=== PATIENT | male | born 1965 | race Caucasian/White ===

== ENCOUNTER 2023-04-08 14:43 | Outpatient (AMB) | payer OTHER, SELFPAY ==
--- NOTE | 2023-04-08 15:32 | A.OFFPC_ITS ---
<Statement entered by Gabbie Evans MD - 01/17/25 15:19> This note has been administratively?closed. 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 Allergies No Known Allergies Allergy (Verified 04/08/23 15:45) Medication List - Last Reconciled 04/08/23 by Gabbie Evans MD amlodipine 10 mg PO DAILY cetirizine 10 mg PO DAILY citalopram 20 mg PO DAILY rosuvastatin 5 mg PO DAILY Tobacco use date assessed: 04/08/23 Dental Screening Dental Screen Date: 04/08/23 Did you have a dental visit in the last 12 months?: Yes Did you have a dental problem in the last 6 months where you did not have access to dental care?: No Was dental information given to patient?: No HPI 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 [facility] Medical History (Updated 04/08/23 @ 15:51 by Gabbie Evans MD) Essential hypertension Generalized anxiety disorder Hyperlipidemia Obesity Seasonal allergies Surgical History (Updated 04/08/23 @ 16:08 by Gabbie Evans MD) S/P inguinal herniorrhaphy Family History (Updated 04/08/23 @ 16:09 by Gabbei Evans MD) Mother Hyperlipidemia Maternal Uncle Parkinsons disease Social History (Updated 04/08/23 @ 16:10 by Gabbie Evans MD) Housing: House Patient Tobacco Use Status: Never used Tobacco e-Cigarette/Vaping Use: Never Used service: No Current occupational status: employed Cognitive needs: No Hearing needs: No Vision needs: Yes Questionnaire PHQ-9 Over the last 2 weeks, how often have you been bothered by any of the following problems? 1. Little interest or pleasure in doing things: not at all 2. Feeling down, depressed, or hopeless: not at all 3. Trouble falling or staying asleep, or sleeping too much: not at all 4. Feeling tired or having little energy: not at all 5. Poor appetite or overeating: not at all 6. Feeling bad about yourself - or that you are a failure or have let yourself or your family down: not at all 7. Trouble concentrating on things, such as reading the newspaper or watching television: not at all 8. Moving or speaking so slowly that other people could have noticed. Or the opposite - being so fidgety or restless that you have been moving around a lot more than usual: not at all 9. Thoughts that you would be better off or of hurting yourself in some way: not at all Total score: 0 Depression Screening Interpretation: Negative 58115 - PHQ-9 Billing: Yes Source: Developed by Drs. Charlie Fuentes, Eliza Monroy, Asad Ma and colleagues, with an educational felecia from [employer]. Thrive Questionnaire Date Thrive assessed: 04/08/23 I am a: Patient What is your living situation today?: I have a steady place to live Within the past 12 months, did the food you bought not last and you didn't have the money to get more?: Never true Within the past 12 months, did you worry whether your food would run out before you got money to buy more?: Never true Do you have trouble paying for medicines?: No Do you have trouble getting transportation to medical appointments?: No Do you have trouble paying your heating and electricity bill?: No Do you have trouble taking care of your child, family member or friend?: No Do you have trouble with day-to-day activities such as bathing, preparing meals, shopping, managing finances, etc.?: No Are you currently unemployed and looking for a job?: No Are you interested in more education?: No AUDIT C Alcohol Use Questionnaire (AUDIT-C) 1. How often do you have a drink containing alcohol?: 2-4 times a month 2. How many drinks containing alcohol do you have on a typical day when you are drinking?: 1 or 2 3. How often do you have six or more drinks on one occasion?: Never Total Score: 2 Score Reviewed/Action Taken: Yes KAUR-7 AMB Questionnaire KAUR-7 Date KAUR - 7 assessed: 04/08/23 Feeling nervous, anxious, or on edge: 0 = Not at all Not being able to stop or control worryin = Not at all Worrying too much about different things: 0 = Not at all Trouble relaxin = Several days Being so restless that it is hard to sit still: 0 = Not at all Becoming easily annoyed or irritable: 0 = Not at all Feeling afraid as if something awful might happen: 0 = Not at all Total KAUR-7 score (0-4 normal; 5-9 mild; 10-14 moderate; 15-21 severe): 1 Source: Developed by Drs. Charlie Fuentes, Eliza Monroy, Asad Ma and colleagues, with an educational felecia from [employer]. KAUR-7 Assessment Billing KAUR-7 Assessment Tool: KAUR-7 Assessment 20369 Physical exam (Primary Care) Vital Signs: Last Vital Signs Pulse 63 04/08/23 15:37 BP 126/78 04/08/23 15:37 Pulse Ox 95 04/08/23 15:37 Oxygen Delivery Method Room Air 04/08/23 15:37 BMI result Body Mass Index 34.1 Tobacco/Smoking Status: Tobacco use Status Tobacco use date assessed 04/08/23 04/08/23 15:41 Patient Tobacco Use Status Current someday Tobacco 04/08/23 15:41 e-Cigarette/Vaping Use Never Used 04/08/23 15:41 PHQ-9: PHQ-9 Score PHQ-9: Total score 0 04/08/23 15:47 Depression Screening Interpretation: Negative Thrive Assessment: Date of Thrive Assessment Date Thrive assessed 04/08/23 04/08/23 15:42 Cardio Peripheral pulses: popliteal pulses present, posterior tibial pulses present and dorsalis pedis present GI Other: Reducible nontender umbilical hernia Palpation (GI): Soft to palpation, nontender, no guarding and Hernia present umbilical Auscultation: normal bowel sounds Male General Exam: Yes normal external exam Extrem Other: Tenderness on palpation along lateral aspect of left lower leg just below knee, with no gross bone deformity or joint swelling seen in affected extremity, no varicosities seen Assessment and Plan Assessment & Plan (1) Obesity: Code(s): E66.9 - Obesity, unspecified (2) Seasonal allergies: Code(s): J30.2 - Other seasonal allergic rhinitis (3) Generalized anxiety disorder: Code(s): F41.1 - Generalized anxiety disorder (4) Hyperlipidemia: Code(s): E78.5 - Hyperlipidemia, unspecified (5) Essential hypertension: Code(s): I10 - Essential (primary) hypertension (6) Annual visit for general adult medical examination with abnormal findings: Code(s): Z00.01 - Encounter for general adult medical examination with abnormal findings (7) Leg pain, lateral: Code(s): M79.606 - Pain in leg, unspecified Orders: Orders Alanine Aminotransferase Today E66.9 - Obesity, unspecified, E78.5 - Hyperlipidemia, unspecified, F41.1 - Generalized anxiety disorder, I10 - Essential (primary) hypertension, J30.2 - Other seasonal allergic rhinitis, Z00. - Encounter for general adult medical examination with abnormal findings Aspartate Amino Transferase Today E66.9 - Obesity, unspecified, E78.5 - Hyperlipidemia, unspecified, F41.1 - Generalized anxiety disorder, I10 - Essential (primary) hypertension, J30.2 - Other seasonal allergic rhinitis, Z00.01 - Encounter for general adult medical examination with abnormal findings Basic Metabolic Panel Fasting Today E66.9 - Obesity, unspecified, E78.5 - Hyperlipidemia, unspecified, F41.1 - Generalized anxiety disorder, I10 - Essential (primary) hypertension, J30.2 - Other seasonal allergic rhinitis, Z00.01 - Encounter for general adult medical examination with abnormal findings Lipid Panel Today E66.9 - Obesity, unspecified, E78.5 - Hyperlipidemia, unspecified, F41.1 - Generalized anxiety disorder, I10 - Essential (primary) hypertension, J30.2 - Other seasonal allergic rhinitis, Z00.01 - Encounter for general adult medical examination with abnormal findings Vitamin D 25-OH Total Today E66.9 - Obesity, unspecified, E78.5 - Hyperlipi demia, unspecified, F41.1 - Generalized anxiety disorder, I10 - Essential (primary) hypertension, J30.2 - Other seasonal allergic rhinitis, Z00.01 - Encounter for general adult medical examination with abnormal findings PSA,Total (Free>4and<10) Today E66.9 - Obesity, unspecified, E78.5 - Hyperlipidemia, unspecified, F41.1 - Generalized anxiety disorder, I10 - Essential (primary) hypertension, J30.2 - Other seasonal allergic rhinitis, Z00.01 - Encounter for general adult medical examination with abnormal findings US venous duplex LE LT Today M79.606 - Pain in leg, unspecified Medications: New amlodipine 10 mg PO DAILY 90 tabs 1RF cetirizine 10 mg PO DAILY PRN 90 tabs 1RF allergy symptoms citalopram 20 mg PO DAILY 90 tabs 1RF rosuvastatin 5 mg PO DAILY 90 tabs 1RF Coding Level of Care Code New Pt Prev Care 40-64y(48705) Diagnoses Obesity E66.9 Seasonal allergies J30.2 Generalized anxiety disorder F41.1 Hyperlipidemia E78.5 Essential hypertension I10 Annual visit for general adult medical examination with abnormal findings Z00.01 Leg pain, lateral M79.606 Additional Codes KAUR-7 Assessment Billing - KAUR-7 Assessment Tool: KAUR-7 Assessment 55618 ([id number])
[2023-04-08 15:37] VITALS: BP 126/78; PULSE 63; O2SAT 95; BMI 34.1
== END 2023-04-08 16:18 | disposition home or self-care (01) ==
PROVIDERS: Visit Provider Internal Medicine
DX: E66.9 Obesity, unspecified (principal); J30.2 Other seasonal allergic rhinitis; F41.1 Generalized anxiety disorder; E78.5 Hyperlipidemia, unspecified; I10 Essential (primary) hypertension; Z00.01 Encounter for general adult medical examination with abnormal findings; M79.606 Pain in leg, unspecified
CPT/HCPCS: 99499

== ENCOUNTER 2023-04-14 15:29 | Outpatient (REF) | payer OTHER, SELFPAY ==
--- NOTE | ~2023-04-14 | US_ITS ---
EXAMINATION: US VENOUS ULTRASOUND WITH DOPPLER LOWER EXTREMITY, LEFT CLINICAL INFORMATION: Leg pain. COMPARISON: None available. TECHNIQUE: Ultrasound of the deep veins is performed from the hip to the calf with compression sonography and color and pulse Doppler assessment. Spectral analysis with color-flow imaging is performed. FINDINGS: There is normal venous compression and respiratory variation and augmented flow. The visualized common femoral vein, superficial femoral vein, profunda femoral vein, popliteal vein, and the trifurcation region shows no evidence of deep venous thrombosis. There is no significant popliteal fossa cyst. Incidental finding of hypo-/anechoic focal area left lateral proximal gastroc muscle without vascularity. Appears solid. Question muscle or nerve tumor. If the patient's symptoms persist, followup ultrasound in 5 days 7 days might be of value to exclude proximal propagation from a non-visualized calf vein. US/US venous duplex LE LT IMPRESSION: No DVT demonstrated in the left lower extremity. Solid lesion left proximal gastroc muscle. Question schwannoma, hibernoma or nodular fasciitis. Recommend MRI without and with contrast of the calf. The airway is patent without
== END 2023-04-14 15:30 | disposition home or self-care (01) ==
LOC: HO.US 15:29
PROVIDERS: PCP Internal Medicine; Visit Provider Internal Medicine
DX: M79.605 Pain in left leg (principal)
CPT/HCPCS: 93971

== ENCOUNTER 2023-04-19 07:58 | Outpatient (REF) | payer OTHER, SELFPAY ==
[2023-04-19 12:28] LABS: PSA,Total (Free>4and<10) 1.54 ng/mL (0.00-4.00)
[2023-04-19 12:45] LABS: Alanine Aminotransferase 29 U/L (0-40); Anion Gap 14 (12-20); Aspartate Amino Transferase 23 U/L (5-37); Blood Urea Nitrogen 17 mg/dL (9-16); Calcium 9.5 mg/dL (8.4-10.2); Carbon Dioxide 24 mmol/L (22-29); Chloride 108 mmol/L (96-108); Cholesterol 142 mg/dL; Estimated Glomerular Filt Rate > 60; Glucose Fasting 111 mg/dL (60-99); HDL Cholesterol 45 mg/dL; LDL Cholesterol Calculated 82 mg/dl; Potassium 3.7 mmol/L (3.3-5.1); Sodium 142 mmol/L (135-145); Triglycerides 77 mg/dL; Vitamin D 25-OH Total 47.7 ng/mL (>30)
== END 2023-04-19 07:59 | disposition home or self-care (01) ==
LOC: HO.HMGCLDS 07:58
PROVIDERS: PCP Internal Medicine; Visit Provider Internal Medicine
DX: Z00.01 Encounter for general adult medical examination with abnormal findings (principal); J30.2 Other seasonal allergic rhinitis; E66.9 Obesity, unspecified; E78.5 Hyperlipidemia, unspecified; F41.1 Generalized anxiety disorder; I10 Essential (primary) hypertension; Z12.5 Encounter for screening for malignant neoplasm of prostate
CPT/HCPCS: 36415; 80048; 80061; 82306; 84153; 84450; 84460

== ENCOUNTER 2023-06-08 12:50 | Outpatient (REF) | payer OTHER, SELFPAY ==
--- NOTE | ~2023-06-08 | MR_ITS ---
EXAMINATION: MR LOWER LEG WITHOUT AND WITH CONTRAST, LEFT CLINICAL INFORMATION: Solid lesion left proximal gastrocnemius muscle on venous Doppler. Question schwannoma, hibernoma, nodular fasciitis. COMPARISON: Lower extremity venous ultrasound dated 04/14/2023. TECHNIQUE: Multisequence MR imaging of the left lower leg was obtained before and after the IV administration of 10 mL Gadavist contrast on a high-field strength scanner. FINDINGS: BONE: No abnormal marrow signal. No stress reaction, fracture, or avascular necrosis. No concerning lytic or blastic osseous lesion. No postcontrast marrow enhancement. MUSCLES/TENDONS: The visualized muscles and tendons are intact. No edema or evidence of acute injury. No measurable tear. No postcontrast enhancement. LIGAMENTS: Intra-articular knee ligaments grossly intact on large voglx-vy-nyyi imaging. SOFT TISSUES: Along the lateral aspect of the proximal fibular metaphysis, there is an ovoid focus of isointense T1 and hyperintense T2 signal measuring approximately 0.9 x 1.1 x 0.9 cm. This demonstrates mild postcontrast enhancement and corresponds to the prior ultrasound findings. 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 Differential diagnosis includes a traumatic neuroma given the location adjacent to a bony prominence. No additional soft tissue mass or fluid collection. MR/MR lower leg LT wo/w con IMPRESSION: 1. Ovoid focus measuring up to 1.1 cm along the lateral aspect of the proximal fibular metaphysis which demonstrates mild postcontrast enhancement and corresponds to the prior ultrasound findings. 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 Differential diagnosis includes a traumatic neuroma given the location adjacent to a bony prominence. 2. No additional soft tissue mass or fluid collection. 3. No acute osseous abnormality. No stress reaction, fracture, or avascular necrosis.
[2023-06-08] MEDS: gadobutroL 10 ML VIAL IVPUSH (13:54)
== END 2023-06-08 12:51 | disposition home or self-care (01) ==
LOC: HO.MRI 12:50
PROVIDERS: PCP Internal Medicine; Visit Provider Internal Medicine
DX: M79.9 Soft tissue disorder, unspecified (principal)
CPT/HCPCS: 73720; A9585

== ENCOUNTER 2023-07-02 12:36 | Outpatient (AMB) | payer OTHER, SELFPAY ==
[2023-07-02 12:58] VITALS: BP 142/84; PULSE 70; BMI 33.8
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
--- NOTE | 2023-07-05 09:11 | A.OFFVIS_ITS ---
Intake Vital Signs 07/02/23 12:58 Height 5 ft 8 in Weight 222 lb BMI 33.8 BP 142/84 H Blood Pressure Location Rt brachial Position Sitting Pulse 70 Intake Visit Reasons: peripheral nerve sheath tumor Allergies penicillin G Allergy (Mild, Verified 07/02/23 13:03) Hives Medication List - Last Reconciled 07/02/23 by Ad Brito MD amlodipine 10 mg PO DAILY cetirizine 10 mg PO DAILY PRN citalopram 20 mg PO DAILY rosuvastatin 5 mg PO DAILY HPI HPI Comments History of Present Illness Details Patient presents 1. Left leg mass 2. Umbilical hernia 1. Patient has had this process indeterm inate time. He has had occasional symptoms when he strikes the left upper lateral calf area and had pain. 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 2. Umbilical hernia is been present for many years time. His increasing size, becoming more symptomatic. Patient wished to have this repaired. He is tolerating a diet having normal bowel habits. Does occasional heavy lifting. He has no other GI issues or complaints. Chart was reviewed patient evaluated [facility] Medical History Mass of left lower leg Lesion of soft tissue of lower leg and ankle Obesity Seasonal allergies Generalized anxiety disorder Hyperlipidemia Essential hypertension Surgical History S/P inguinal herniorrhaphy Family History Mother Hyperlipidemia Maternal Uncle Parkinsons disease Social History (Updated 07/02/23 @ 13:04 by TEO Ryder) Housing: House Alcohol intake: current Alcohol intake frequency: holidays/special occasions only Patient Tobacco Use Status: Never used Tobacco e-Cigarette/Vaping Use: Never Used service: No Current occupational status: employed Cognitive needs: No Hearing needs: No Vision needs: Yes Physical Exam Vital Signs: Last Vital Signs Pulse 70 07/02/23 12:58 BP 142/84 H 07/02/23 12:58 BMI result Body Mass Index 33.8 Chest Other: Chest sounds bilaterally, HS 1 in 2 GI Other: Patient was examined both supine and standing with Valsalva. Moderate corpulent abdomen. Very large approximately 3 cm umbilical hernia reducible. Bilateral groin exam negative. Genitalia within normal limits. Abdomen otherwise benign. Extrem Other: Extremities grossly neurovascularly intact. Patient has some tenderness over the proximal lateral left upper calf. No obvious mass was palpable. No groin adenopathy. Assessment & Plan Assessment & Plan (1) Mass of left lower leg: Code(s): R22.42 - Localized swelling, mass and lump, left lower limb Plan: 1. Risks, benefits, alternatives umbilical hernia repair open technique with mesh were reviewed with the patient and included but not limited to bleeding, infection, recurrence, numbness, pain, scarring, bowel injury and the patient wishes to proceed. All questions were answered. 2. The left proximal lateral thigh mass therapeutic options reviewed the patient including excision, or continued surveillance. Patient has opted for the latter. It is minimally symptomatic and at present, does not want to pursue any surgical interventions regarding this. Current plan is to arrange for an MRI in 6 months time for surveillance. Should in the meantime he developed any symptoms regarding this he should contact the office. (2) Umbilical hernia, incarcerated: Code(s): K42.0 - Umbilical hernia with obstruction, without gangrene Orders: Orders MR lower leg LT wo/w con 6 Months R22.42 - Localized swelling, mass and lump, left lower limb Quality Reporting (2019) Adult ([facility] ) Body Mass Index: 33.8 Coding Level of Care Code New Pt Level 5 (88399) Diagnoses Mass of left lower leg R22.42 Umbilical hernia, incarcerated K42.0
[2023-07-05 09:15] VITALS: BMI 33.8
== END 2023-07-02 13:16 | disposition home or self-care (01) ==
PROVIDERS: PCP Internal Medicine; Visit Provider Surgery
DX: R22.42 Localized swelling, mass and lump, left lower limb (principal); K42.0 Umbilical hernia with obstruction, without gangrene
CPT/HCPCS: 99204

== ENCOUNTER → 2023-07-02 12:36 | Outpatient (BNVA) | payer OTHER, SELFPAY | PROVIDERS: PCP Internal Medicine; Visit Provider Surgery ==

== ENCOUNTER 2023-07-09 06:54 | Day surgery (SDC) | payer OTHER, SELFPAY ==
--- NOTE | 2023-07-08 10:28 | MHC.SHP ---
Pre-Procedural Eval Section A Date of Service: 07/08/23 The patient is an INPATIENT: No Changes since office visit: No Cold of Flu in the past 2 weeks, No New Medical Problems, No Changes in Medication and No Patient answered all questions The History & Physical has been completed within 30 days and I have reviewed it.: Yes Section B Chief Complaint: Umbilical hernia with obstruction, without gangren Allergies: Allergies Allergy/AdvReac Type Severity Reaction Status Date / Time penicillin G Allergy Mild Hives Verified 07/02/23 13:03 Plan I have reviewed the history and physical and performed a pertinent physical examination on my patient. No changes have occurred unless specified. Time Spent With Patient Time: Total time managing care of this patient today ____ minutes.
--- NOTE | 2023-07-08 10:48 | HO.ANESPROP2 ---
Documented by User: Magali Mandujano NP 07/08/23 10:49 HPI - Anesthesia Eval Consult details Narrative: 57yo M for Open Hernia Repair Umbilical w/mesh PMFSH Active Problems Active Problems: All Active Problems (Updated 04/14/23 @ 23:54 by Gabbie Evans MD) Umbilical hernia, incarcerated (Acute) Mass of left lower leg (Acute) Lesion of soft tissue of lower leg and ankle (Acute) Obesity (Acute) Seasonal allergies (Acute) Generalized anxiety disorder (Acute) Hyperlipidemia (Acute) Essential hypertension (Acute) Past Medical History Medical History Mass of left lower leg Lesion of soft tissue of lower leg and ankle Obesity Seasonal allergies Generalized anxiety disorder Hyperlipidemia Essential hypertension Family History Family History Mother Hyperlipidemia Maternal Uncle Parkinsons disease Surgical History Surgical History S/P inguinal herniorrhaphy Social History Social History (Updated 07/02/23 @ 13:04 by TEO Ryder) Housing: House Alcohol intake: current Alcohol intake frequency: holidays/special occasions only Patient Tobacco Use Status: Never used Tobacco e-Cigarette/Vaping Use: Never Used Use of substances other than those prescribed or required for medical reasons: No Are you DNR?: No Advance Directives: No Advance Directives Information Provided: Yes service: No Current occupational status: employed Cognitive needs: No Hearing needs: No Vision needs: Yes Meds Allergies Allergy/AdvReac Type Severity Reaction Status Date / Time penicillin G Allergy Mild Hives Verified 07/02/23 13:03 Active Medications: Current Medications Clindamycin Phosphate (Cleocin) 900 mg in 50 mls @ 50 mls/hr IV PREOP ONE Stop: 07/08/23 11:26 Exam Exam Date and Time: July 08, 2023 1048 Pertinent Lab Results Pertinent Lab Results: Laboratory Tests 04/19/23 08:02 Sodium 142 Potassium 3.7 Chloride 108 Carbon Dioxide 24 BUN 17 H Creatinine 0.80 Assessment and Plan Assessment Anesthesia Assessment: Chart Reviewed Documented by User: Ronaldo Betancourt MD 07/09/23 07:58 PMF Past Medical History Medical History Mass of left lower leg Lesion of soft tissue of lower leg and ankle Obesity Seasonal allergies Generalized anxiety disorder Hyperlipidemia Essential hypertension Family History Family History Mother Hyperlipidemia Maternal Uncle Parkinsons disease Family history of problems with anesthesia: No Surgical History Surgical History S/P inguinal herniorrhaphy History of Problems with Anesthesia: No Social History Social History (Updated 07/02/23 @ 13:04 by TEO Ryder) Housing: House Alcohol intake: current Alcohol intake frequency: holidays/special occasions only Patient Tobacco Use Status: Never used Tobacco e-Cigarette/Vaping Use: Never Used Use of substances other than those prescribed or required for medical reasons: No Are you DNR?: No Advance Directives: No Advance Directives Information Provided: Yes service: No Current occupational status: employed Cognitive needs: No Hearing needs: No Vision needs: Yes Meds Allergies Allergy/AdvReac Type Severity Reaction Status Date / Time penicillin G Allergy Mild Hives Verified 07/02/23 13:03 Exam Airway Mallampati Class: II TM Dist: >3cm Neck ROM: Limited Heart: rrr Lungs: cta Assessment and Plan Assessment Anesthesia Assessment: Anesthesia Plan Discussed Final Anesthetic Review Family History of Problems with Anesthesia: No History of Problems with Anesthesia: No NPO: Yes ASA Class: II Final Preanesthetic Review: No Changes in Pt Med Stat, Meds/Allgs Chart Reviewed, Consent Obtained/Reviewed and Anes Risks/Benef Reviewed Patient Risk: Intermediate Procedure Risk: Intermediate Anesthetic Plan Anesthetic Plan: GA, MAC: and Agree w/ Assess. and Plan Disposition: Standard PACU
[2023-07-09 07:05] VITALS: BMI 33.4
[2023-07-09 07:12] VITALS: BP 139/89; PULSE 72; RESP 16; TEMP 37.2; O2SAT 94
[2023-07-09] MEDS: Lactated Ringers 1,000 ML 100 ML IVCONT (07:43)
--- NOTE | 2023-07-09 09:04 | P.OP_ITS ---
Operative Note Operative Note Date of Service: 07/09/23 Narrative: Preoperative diagnosis: [] Large incarcerated umbilical hernia Postop diagnosis: [] Same Procedure [] open umbilical herniorrhaphy with Bard mesh Surgeon: [] Daryl Trimming Machine Operator: [] Rosalio Type of Anesthesia: [] Large umbilical hernia with incarcerated omental contents. Defect measured approximately 4 cm. Wound was irrigated Indication for surgery: [] General Findings: [] Patient brought to the operating room, placed on operative table in supine position, after adequate level of general anesthesia was induced, the patient's abdomen was prepped and draped in usual sterile fashion. Patient underwent preemptive analgesia with 0.5% Marcaine/1% lidocaine. A supraumbilical curvilinear incision was made around the hernia in question, and carried down through skin, subcutaneous tissue, where a large hernia sac was from the posterior aspect of the umbilicus and dissected down to the fascia. Sac was opened where incarcerated omental contents and sac were amputated using Bovie. Fascia margins were circumferentially cleared. A Bard mesh was placed in this defect, and the superficial layer of the mesh was circumferentially sutured to the surrounding fascia using interrupted 0 Ethibond suture. At completion procedure, mesh was in good position w no tension or gaps. Wound was irrigated, secured hemostasis, and closed using interrupted 3-0 Vicryl sutures to tack the posterior aspect of the umbilicus to the wound floor. Skin was closed using interrupted inverted dermal 3-0 Vicryl sutures followed by Steri-Strips and sterile dressings. Sponge, needle, instrument counts reported correct. Patient tolerated procedure well and emerged anesthesia stable condition. EBL minimal
[2023-07-09 09:15] VITALS: BP 113/78; PULSE 85; RESP 16; TEMP 36.3; O2SAT 98
[2023-07-09 09:20] VITALS: BP 116/65; PULSE 82; RESP 16; O2SAT 97
[2023-07-09 09:25] VITALS: BP 115/68; PULSE 75; RESP 16; O2SAT 97
[2023-07-09 09:30] VITALS: BP 109/68; PULSE 82; RESP 16; O2SAT 97
[2023-07-09 09:45] VITALS: BP 116/78; PULSE 77; RESP 16; TEMP 36.5; O2SAT 97
--- NOTE | 2023-07-09 09:58 | P.CONAN_ITS ---
HPI - Anesthesia Eval Consult details Narrative: Colonoscopy PMFSH Active Problems Active Problems: All Active Problems (Updated 04/14/23 @ 23:54 by Gabbie Evans MD) Umbilical hernia, incarcerated (Acute) Mass of left lower leg (Acute) Lesion of soft tissue of lower leg and ankle (Acute) Obesity (Acute) Seasonal allergies (Acute) Generalized anxiety disorder (Acute) Hyperlipidemia (Acute) Essential hypertension (Acute) Past Medical History Medical History Mass of left lower leg Lesion of soft tissue of lower leg and ankle Obesity Seasonal allergies Generalized anxiety disorder Hyperlipidemia Essential hypertension Family History Family History Mother Hyperlipidemia Maternal Uncle Parkinsons disease Family history of problems with anesthesia: No Surgical History Surgical History S/P inguinal herniorrhaphy History of Problems with Anesthesia: No Social History Social History (Updated 07/02/23 @ 13:04 by TEO Ryder) Housing: House Alcohol intake: current Alcohol intake frequency: holidays/special occasions only Patient Tobacco Use Status: Never used Tobacco e-Cigarette/Vaping Use: Never Used Use of substances other than those prescribed or required for medical reasons: No Are you DNR?: No Advance Directives: No Advance Directives Information Provided: Yes service: No Current occupational status: employed Cognitive needs: No Hearing needs: No Vision needs: Yes Meds Allergies Allergy/AdvReac Type Severity Reaction Status Date / Time penicillin G Allergy Mild Hives Verified 07/02/23 13:03 Active Medications: Current Medications Acetaminophen (Acetaminophen 325 Mg Tablet) 650 mg PO Q4H PRN PRN Reason: mild to moderate pain Fentanyl (Fentanyl Citrate/Pf 100 Mcg/2 Ml Vial) 25 mcg IVPUSH Q5M PRN; Protocol PRN Reason: Pain, Moderate(Pain Scale 4-6) Hydromorphone HCl (Hydromorphone Hcl 0.5 Mg/0.5 Ml Syringe) 0.25 mg IVPUSH Q5M PRN; Protocol PRN Reason: Pain, Severe (Pain Scale 7-10) Lactated Ringer's (Lr) 1,000 mls @ 100 mls/hr IVCONT .Q10H [facility] Last Admin: 07/09/23 07:43 Dose: 100 mls/hr Exam Exam Date and Time: July 09, 2023 0958 Height,Weight and Vital Signs: Height 5 ft 8 in Weight 99.79 kg Last Vital Signs Temp 97.7 F 07/09/23 09:45 Pulse 77 07/09/23 09:45 Resp 16 07/09/23 09:45 BP 116/78 07/09/23 09:45 Pulse Ox 97 07/09/23 09:45 O2 Del Method Room Air 07/09/23 09:45 Airway Mallampati Class: II TM Dist: >3cm Neck ROM: Full Heart: rrr Lungs: cta Assessment and Plan Assessment Anesthesia Assessment: Anesthesia Plan Discussed and Chart Reviewed Final Anesthetic Review Family History of Problems with Anesthesia: No History of Problems with Anesthesia: No NPO: Yes ASA Class: II Final Preanesthetic Review: No Changes in Pt Med Stat, Meds/Allgs Chart Reviewed, Consent Obtained/Reviewed and Anes Risks/Benef Reviewed Patient Risk: Low Procedure Risk: Low Anesthetic Plan Anesthetic Plan: MAC: and Agree w/ Assess. and Plan Disposition: Standard PACU
[2023-07-09] MEDS: Acetaminophen 325 MG TABLET 650 MG PO (10:02)
== END 2023-07-09 10:45 | disposition home or self-care (01) ==
PROVIDERS: PCP Internal Medicine; Visit Provider Surgery
PROC: (CPT 49594; principal; 2023-07-09 08:40)
DX: K42.0 Umbilical hernia with obstruction, without gangrene (principal); I10 Essential (primary) hypertension; E78.5 Hyperlipidemia, unspecified; F41.9 Anxiety disorder, unspecified; E66.9 Obesity, unspecified; Z68.33 Body mass index [BMI] 33.0-33.9, adult; Z79.899 Other long term (current) drug therapy; Z88.0 Allergy status to penicillin; Z98.890 Other specified postprocedural states
CPT/HCPCS: 49594; 88304; C1781; J1100; J2250; J2405; J3010

== ENCOUNTER → 2023-07-09 06:54 | Outpatient (BNV) | payer OTHER, SELFPAY | PROVIDERS: PCP Internal Medicine; Visit Provider Surgery | DX: K42.0 Umbilical hernia with obstruction, without gangrene (principal) | CPT/HCPCS: 49594 ==

== ENCOUNTER 2023-07-26 09:03 | Outpatient (AMB) | payer OTHER, SELFPAY ==
--- NOTE | 2023-07-26 09:22 | MHC.OFFVIS ---
Intake Vital Signs 07/26/23 09:24 Weight 222 lb BP 143/81 H Blood Pressure Location Rt brachial Position Sitting Pulse 83 Intake Visit Reasons: umbilical hernia repair Intake Note: Patient here s/p umbilical hernia repair. Reports incisions healing well. Denies oozing, bleeding, pain. No longer taking rx pain meds. Veneer Jointer Required: No Accompanied by: Self / Same As Patient Allergies penicillin G Allergy (Mild, Verified 07/26/23 09:25) Hives HPI HPI Comments History of Present Illness Details Status post umbilical hernia repair. Minimal incisional discomfort. Tolerating his diet. Having regular bowel habits. Increasing activity level as tolerated. [facility] Medical History Lesion of soft tissue of lower leg and ankle Obesity Seasonal allergies Generalized anxiety disorder Hyperlipidemia Essential hypertension Surgical History Umbilical hernia, incarcerated (07/09/23) Mass of left lower leg S/P inguinal herniorrhaphy Family History Mother Hyperlipidemia Maternal Uncle Parkinsons disease Social History Housing: House Alcohol intake: current Alcohol intake frequency: holidays/special occasions only Patient Tobacco Use Status: Never used Tobacco e-Cigarette/Vaping Use: Never Used service: No Current occupational status: employed Cognitive needs: No Hearing needs: No Vision needs: Yes Physical Exam Vital Signs: Last Vital Signs Pulse 83 07/26/23 09:24 BP 143/81 H 07/26/23 09:24 GI Other: Abdomen soft. Wound clean dry and intact. Assessment & Plan Assessment & Plan (1) Umbilical hernia, incarcerated: Onset Date: 07/09/23 Comment: Dr. Ad Brito Code(s): K42.0 - Umbilical hernia with obstruction, without gangrene Plan Patient has been given local instructions, and will follow-up p.r.n. Coding Level of Care Code Global (41334) Diagnoses Umbilical hernia, incarcerated K42.0
[2023-07-26 09:24] VITALS: BP 143/81; PULSE 83
== END 2023-07-26 09:49 | disposition home or self-care (01) ==
PROVIDERS: PCP Internal Medicine; Visit Provider Surgery
DX: K42.0 Umbilical hernia with obstruction, without gangrene (principal); Z09 Encounter for follow-up examination after completed treatment for conditions other than malignant neoplasm
CPT/HCPCS: 99212

== ENCOUNTER → 2023-07-26 09:03 | Outpatient (BNVA) | payer OTHER, SELFPAY | PROVIDERS: PCP Internal Medicine; Visit Provider Surgery ==

== ENCOUNTER 2024-01-12 08:05 | Outpatient (REF) | payer OTHER, SELFPAY ==
--- NOTE | ~2024-01-12 | MR_ITS ---
EXAMINATION: MR LOWER LEG WITHOUT AND WITH CONTRAST, LEFT CLINICAL INFORMATION: Left lateral leg pain. Surveillance left calf nerve sheath tumor. COMPARISON: Left lower leg MRI dated 06/08/2023. TECHNIQUE: Multisequence MR imaging of the left lower leg was obtained before and after the IV administration of 10 mL Gadavist contrast on a high-field strength scanner. FINDINGS: BONE: No abnormal marrow signal. No stress reaction, fracture, or avascular necrosis. No concerning lytic or blastic osseous lesion. No postcontrast marrow enhancement. MUSCLES/TENDONS: No evidence of acute muscle or tendon injury. No postcontrast enhancement or evidence of acute myositis. LIGAMENTS: Bursae intact intra-articular knee ligaments, however, evaluation limited on large [id number] imaging. SOFT TISSUES: Redemonstration of an ovoid lesion along the lateral aspect of the proximal tibia, which demonstrates hyperintense T2 and heterogeneously isointense T1 signal with postcontrast enhancement measuring approximately 0.9 x 1.1 x 0.8 cm, similar when compared to the prior examination. No new soft tissue mass or fluid collection. 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 MR/MR lower leg LT wo/w con IMPRESSION: 1. Redemonstration of an ovoid soft tissue lesion along the lateral aspect of the proximal tibia measuring up to 1.1 cm, similar when compared to the prior examination. 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 No new soft tissue mass or fluid collection. 2. No acute osseous abnormality. No stress reaction, fracture, or avascular necrosis.
[2024-01-12] MEDS: gadobutroL 10 ML VIAL IVPUSH (09:17)
== END 2024-01-12 08:06 | disposition home or self-care (01) ==
LOC: HO.MRI 08:05
PROVIDERS: PCP Internal Medicine; Visit Provider Surgery
DX: R22.42 Localized swelling, mass and lump, left lower limb (principal)
CPT/HCPCS: 73720; A9585

== ENCOUNTER 2024-01-17 13:48 | Outpatient (AMB) | payer OTHER, SELFPAY ==
--- NOTE | 2024-01-17 13:52 | MHC.OFFVIS ---
Intake Visit Reasons: Mass (L) lower leg, MRI results Intake Note: Patient referred by PCP Dr. Evans for mass on Lt lower leg. Patient c/o: no changes. Lt lower leg MRI: 01-12-24 Material Clerk Required: No Accompanied by: Self / Same As Patient Allergies penicillin G Allergy (Mild, Verified 01/17/24 13:53) Hives HPI Comments Details: Patient presents for follow-up. He has no left calf new issues or complaints. MRI demonstrates the lesion to be status quo. [facility] Medical History Lesion of soft tissue of lower leg and ankle Obesity Seasonal allergies Generalized anxiety disorder Hyperlipidemia Essential hypertension Surgical History Umbilical hernia, incarcerated (07/09/23) Mass of left lower leg S/P inguinal herniorrhaphy Family History Mother Hyperlipidemia Maternal Uncle Parkinsons disease Social History Housing: House Alcohol intake: current Alcohol intake frequency: holidays/special occasions only Patient Tobacco Use Status: Never used Tobacco e-Cigarette/Vaping Use: Never Used service: No Current occupational status: employed Cognitive needs: No Hearing needs: No Vision needs: Yes Physical Exam Chest Other: Chest breath sounds bilaterally, HS 1 in 2 GI Other: Abdomen is soft, benign Extrem Other: Bilateral lower extremities grossly neurovascularly intact. Patient has point tenderness along the proximal lateral left calf in line with the mass/lesion in question although it is not palpable Assessment & Plan Assessment & Plan (1) Mass of left lower leg: Code(s): R22.42 - Localized swelling, mass and lump, left lower limb Category: Surgical Plan Therapeutic options were once again reviewed with the patient. We can continue conservative therapy a repeat MRI in 6 months time. We can also arrange for excision of this process. Risks, benefits, alternatives of procedure reviewed the patient and included but not limited to bleeding, infection, recurrence, numbness, pain, scarring, perineal nerve injury. All questions answered. At the present time, patient would like to think over his options and will contact us in the few days when he has made a decision. All questions answered. Coding Level of Care Code Est Pt Level 4 (52253) Diagnoses Mass of left lower leg R22.42
== END 2024-01-17 13:57 | disposition home or self-care (01) ==
PROVIDERS: PCP Internal Medicine; Visit Provider Surgery
DX: R22.42 Localized swelling, mass and lump, left lower limb (principal)
CPT/HCPCS: 99214

== ENCOUNTER → 2024-01-17 13:48 | Outpatient (BNVA) | payer OTHER, SELFPAY | PROVIDERS: PCP Internal Medicine; Visit Provider Surgery ==

== ENCOUNTER 2024-02-21 07:35 | Outpatient (REF) | payer OTHER, SELFPAY ==
[2024-02-21 10:45] LABS: Estimated Average Glucose 114 mg/dL; Hemoglobin A1c % 5.6 % (<6.0)
[2024-02-21 10:47] LABS: Alanine Aminotransferase 33 U/L (0-40); Anion Gap 16 (12-20); Aspartate Amino Transferase 26 U/L (5-37); Blood Urea Nitrogen 12 mg/dL (9-16); Calcium 9.8 mg/dL (8.4-10.2); Carbon Dioxide 24 mmol/L (22-29); Chloride 107 mmol/L (96-108); Cholesterol 132 mg/dL (<200); Estimated Glomerular Filt Rate > 60; Glucose Fasting 113 mg/dL (60-99); HDL Cholesterol 44 mg/dL (>40); LDL Cholesterol Calculated 71 mg/dL (<100); Potassium 3.6 mmol/L (3.3-5.1); Sodium 143 mmol/L (135-145); Triglycerides 85 mg/dL (<150)
== END 2024-02-21 07:36 | disposition home or self-care (01) ==
LOC: HO.HMGCLDS 07:35
PROVIDERS: PCP Internal Medicine; Visit Provider Internal Medicine
DX: F41.1 Generalized anxiety disorder (principal); E78.5 Hyperlipidemia, unspecified; I10 Essential (primary) hypertension; R73.01 Impaired fasting glucose
CPT/HCPCS: 36415; 80048; 80061; 83036; 84450; 84460

== ENCOUNTER 2024-02-21 07:47 | Outpatient (AMB) | payer OTHER, SELFPAY ==
--- NOTE | 2024-02-21 07:56 | A.OFFPC_ITS ---
Vital Signs 02/21/24 07:57 Height 5 ft 8 in Weight 223 lb BMI 33.9 BP 126/70 Blood Pressure Location Rt brachial Position Sitting Pulse 72 Pulse Source Pulse Oximeter Pulse Oximetry (%) 96 Oxygen Delivery Method Room Air Intake Visit Reasons: Follow up BP/Meds Intake Note: Pt is here today to f/u HTN and medication f/u Allergies penicillin G Allergy (Mild, Verified 02/21/24 07:57) Hives Tobacco use date assessed: 02/21/24 Dental Screening Dental Screen Date: 02/21/24 Did you have a dental visit in the last 12 months?: Yes Did you have a dental problem in the last 6 months where you did not have access to dental care?: Yes Was dental information given to patient?: Patient has dentist HPI Follow up BP/Meds HPI Details 58 year old male with hypertension trina kern on amlodipine, here today for follow-up on his blood pressure. Has been taking his medications regularly, compliant with diet. Blood pressure has been stable and controlled on present treatment. He has been feeling well with no complaints at present time. He has hyperlipidemia currently on rosuvastatin due now for a recheck on his lipid panel, and he takes citalopram for his generalized anxiety disorder, which is well controlled per patient. Mass in left lower leg was evaluated by Dr. 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 Patient opts to do conservative treatment on this mass and will just decide to have it removed once it starts getting bigger or it starts becoming painful [facility] Medical History (Updated 02/21/24 @ 08:47 by Gabbie Evans MD) Lesion of soft tissue of lower leg and ankle Obesity Seasonal allergies Generalized anxiety disorder Hyperlipidemia Essential hypertension Surgical History (Updated 02/21/24 @ 08:47 by Gabbie Evans MD) Hx of colonoscopy Umbilical hernia, incarcerated (07/09/23) Mass of left lower leg S/P inguinal herniorrhaphy Family History Mother Hyperlipidemia Maternal Uncle Parkinsons disease Social History Housing: House Alcohol intake: current Alcohol intake frequency: holidays/special occasions only Patient Tobacco Use Status: Never used Tobacco e-Cigarette/Vaping Use: Never Used service: No Current occupational status: employed Cognitive needs: No Hearing needs: No Vision needs: Yes Questionnaire PHQ-9 Over the last 2 weeks, how often have you been bothered by any of the following problems? 1. Little interest or pleasure in doing things: not at all 2. Feeling down, depressed, or hopeless: not at all 3. Trouble falling or staying asleep, or sleeping too much: not at all 4. Feeling tired or having little energy: not at all 5. Poor appetite or overeating: not at all 6. Feeling bad about yourself - or that you are a failure or have let yourself or your family down: not at all 7. Trouble concentrating on things, such as reading the newspaper or watching television: not at all 8. Moving or speaking so slowly that other people could have noticed. Or the opposite - being so fidgety or restless that you have been moving around a lot more than usual: not at all 9. Thoughts that you would be better off or of hurting yourself in some way: not at all Total score: 0 Depression Screening Interpretation: Negative Depression Screening Done: Yes 80197 - PHQ-9 Billing: Yes Source: Developed by Drs. Charlie Fuentes, Eliza Monroy, Asad Ma and colleagues, with an educational felecia from [employer]. Thrive Questionnaire Date Thrive assessed: 02/21/24 I am a: Patient What is your living situation today?: I have a steady place to live Within the past 12 months, did the food you bought not last and you didn't have the money to get more?: Never true Within the past 12 months, did you worry whether your food would run out before you got money to buy more?: Never true Do you have trouble paying for medicines?: No Do you have trouble getting transportation to medical appointments?: No Do you have trouble paying your heating and electricity bill?: No Do you have trouble taking care of your child, family member or friend?: No Do you have trouble with day-to-day activities such as bathing, preparing meals, shopping, managing finances, etc.?: No Are you currently unemployed and looking for a job?: No Are you interested in more education?: No THRIVE Score: 0 AUDIT C Alcohol Use Questionnaire (AUDIT-C) 1. How often do you have a drink containing alcohol?: Monthly or less 2. How many drinks containing alcohol do you have on a typical day when you are drinking?: 1 or 2 3. How often do you have six or more drinks on one occasion?: Never Total Score: 1 KAUR-7 AMB Questionnaire KAUR-7 Date KAUR - 7 assessed: 02/21/24 Feeling nervous, anxious, or on edge: 0 = Not at all Not being able to stop or control worryin = Not at all Worrying too much about different things: 0 = Not at all Trouble relaxin = Not at all Being so restless that it is hard to sit still: 0 = Not at all Becoming easily annoyed or irritable: 0 = Not at all Feeling afraid as if something awful might happen: 0 = Not at all Total KAUR-7 score (0-4 normal; 5-9 mild; 10-14 moderate; 15-21 severe): 0 Source: Developed by Drs. Charlie Fuentes, Eliza Monroy, Asad Ma and colleagues, with an educational felecia from [employer]. Review of Systems Const Denies body aches, Denies fatigue and Denies headache(s) Eyes Denies change in vision ENT Denies dizziness, Denies headache(s), Denies nasal congestion and Denies nasal discharge Card Denies chest pain, Denies lightheadedness, Denies palpitations and Denies dyspnea Resp Denies chest congestion, Denies cough, Denies dyspnea and Denies wheezing GI Denies abdominal pain, Denies change in bowel habits and Denies heartburn Denies hematuria, Denies difficulty urinating, Denies dysuria, Denies urinary frequency and Denies urinary urgency Musc Reports no additional complaints and Denies joint swelling Neuro Denies dizziness and Denies headache(s) Psych Reports no additional complaints Endo Denies fatigue, Denies polydipsia, Denies polyuria and Denies palpitations Fercho/Lymph Reports no additional complaints Aller/Immun Denies seasonal rhinorrhea and Denies wheezing Physical exam (Primary Care) Vital Signs: Last Vital Signs Pulse 72 02/21/24 07:57 BP 126/70 02/21/24 07:57 Pulse Ox 96 02/21/24 07:57 Oxygen Delivery Method Room Air 02/21/24 07:57 BMI result Body Mass Index 33.9 Tobacco/Smoking Status: Tobacco use Status Tobacco use date assessed 02/21/24 02/21/24 08:02 Patient Tobacco Use Status Never used Tobacco 02/21/24 07:56 e-Cigarette/Vaping Use Never Used 02/21/24 07:56 PHQ-9: PHQ-9 Score PHQ-9: Total score 0 02/21/24 08:02 Depression Screening Interpretation: Negative Thrive Assessment: Date of Thrive Assessment Date Thrive assessed 02/21/24 02/21/24 08:02 Const General: no acute distress and alert Nutritional Appearance: obese Orientation/consciousness: patient oriented x3 HENMT Head: Yes normocephalic Ears: external ears normal, TM's normal bilaterally and EAC's normal General nose exam: Normal external nose present Face and sinus: Yes face symmetric Mouth: Normal oral and palatal mucosa present, oropharynx normal and moist mucous membranes Cardio Peripheral pulses: popliteal pulses present, posterior tibial pulses present and dorsalis pedis present GI Palpation (GI): Soft to palpation, nontender and no guarding Auscultation: normal bowel sounds Male General Exam: Yes normal external exam Neuro General: patient oriented x3 Extrem Other: Tenderness on palpation along lateral aspect of left lower leg just below knee, with no gross bone deformity or joint swelling seen in affected extremity, no varicosities seen Assessment and Plan Assessment & Plan (1) Seasonal allergies: Code(s): J30.2 - Other seasonal allergic rhinitis Plan: Continue cetirizine as needed for allergy symptoms (2) Generalized anxiety disorder: Code(s): F41.1 - Generalized anxiety disorder Plan: Stable controlled on citalopram 20 mg daily will, will continue (3) Hyperlipidemia: Code(s): E78.5 - Hyperlipidemia, unspecified Plan: Fasting lipid levels done today, with results still pending. Currently on rosuvastatin 5 mg daily and will adjust dose accordingly. Reinforced importance of following low-cholesterol diet and getting regular exercise (4) Essential hypertension: Code(s): I10 - Essential (primary) hypertension Plan: Blood pressure at goal of less than 130/80. Continue amlodipine 10 mg daily. Denies any adverse effects from the medication such as leg swelling. Reinforced importance of following a low sodium diet, getting regular exercise, and lowering stress levels. Medications: Refilled amlodipine 10 mg PO DAILY 90 tabs 3RF citalopram 20 mg PO DAILY 90 tabs 3RF Coding Level of Care Code Est Pt Level 4 (82970) Complex EM visit Add On G2211 Diagnoses Seasonal allergies J30.2 Generalized anxiety disorder F41.1 Hyperlipidemia E78.5 Essential hypertension I10
[2024-02-21 07:57] VITALS: BP 126/70; PULSE 72; O2SAT 96; BMI 33.9
== END 2024-02-21 08:34 | disposition home or self-care (01) ==
PROVIDERS: PCP Internal Medicine; Visit Provider Internal Medicine
DX: J30.2 Other seasonal allergic rhinitis (principal); F41.1 Generalized anxiety disorder; E78.5 Hyperlipidemia, unspecified; I10 Essential (primary) hypertension
CPT/HCPCS: 99214; G2211